=== PATIENT | female | born 1950 | race Caucasian/White ===

== ENCOUNTER 2017-11-25 09:02 | Emergency (ER) | payer MEDICARE ==
[~2017-11-25] VITALS: Ht 162.6 cm; Wt 72.4 kg
[2017-11-25 09:10] VITALS: BP 160/87; PULSE 68; RESP 18; TEMP 97.6; O2SAT 100
[2017-11-25] MEDS ORDERED: APIX5TAB PO (09:14)
[2017-11-25] MEDS ORDERED: ASPI81CH6 CHEW (09:14)
[2017-11-25] MEDS ORDERED: DEXI60CA3 PO (09:14)
[2017-11-25 09:25] VITALS: O2SAT 100
[2017-11-25] MEDS ORDERED: SODIUM CHLORIDE 0.9% FLUSH 10 ML FLUSH IVF PRN (09:30)
[2017-11-25] MEDS ORDERED: ASPIRIN 325 MG TAB PO ONE (09:30)
[2017-11-25] MEDS ORDERED: SODIUM CHLORID 0.9% 500 ML INJ 500 ML IV ONE (09:30)
[2017-11-25 09:36] LABS: AUTOMATED NEUTROPHIL # 5.4 TH/MM3 (1.8-7.7); BASOPHIL # 0.1 TH/MM3 (0-0.2); BASOPHIL % 1.3 % (0.0-2.0); EOSINOPHIL # 0.1 TH/MM3 (0-0.4); EOSINOPHIL % 0.7 % (0.0-4.0); HEMATOCRIT 47.7 % (35.0-46.0); HEMOGLOBIN 15.7 GM/DL (11.6-15.3); LYMPH % 17.2 % (9.0-44.0); LYMPHOCYTE # 1.3 TH/MM3 (1.0-4.8); MEAN CELL VOLUME 87.6 FL (80.0-100.0); MEAN CORPUSCULAR HEMOGLOBIN 28.8 PG (27.0-34.0); MEAN CORPUSCULAR HGB CONC 32.8 % (32.0-36.0); MEAN PLATELET VOLUME 10.6 FL (7.0-11.0); MONO % 6.6 % (0.0-8.0); MONOCYTE # 0.5 TH/MM3 (0-0.9); NEUT % 74.2 % (16.0-70.0); PLATELET COUNT 284 TH/MM3 (150-450); RED BLOOD COUNT 5.45 MIL/MM3 (4.00-5.30); RED CELL DISTRIBUTION WIDTH 13.1 % (11.6-17.2); WHITE BLOOD COUNT 7.4 TH/MM3 (4.0-11.0)
[2017-11-25 09:58] LABS: ALBUMIN 3.6 GM/DL (3.4-5.0); BICARBONATE 26.4 MEQ/L (21.0-32.0); BLOOD UREA NITROGEN 14 MG/DL (7-18); CALCIUM 8.5 MG/DL (8.5-10.1); GLUCOSE,RANDOM 80 MG/DL (74-106); MAGNESIUM 1.9 MG/DL (1.5-2.5)
--- NOTE | 2017-11-25 09:59 | RADRPT ---
EXAM DATE/TIME: 11/25/2017 09:41 [place] COMPARISON: No previous studies available for comparison. INDICATIONS : Chest fluttering. MEDICAL HISTORY : Carcinoma, breast. SURGICAL HISTORY : Cholecystectomy. CABG. 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 The heart is at the upper limits o f normal in terms of size. Pulmonary vasculature is normal. Lungs are clear. No infiltrates or effusi ons. Median sternotomy wires noted. Electronic device overlying the soft tissues of the anterior ches t. Bony structures are unremarkable otherwise. CONCLUSION: No acute cardiopulmonary disease. Mark Manriquez Jr., MD on November 25, 2017 at 9:56 Board Certified Radiologist. This report was verified electronically.
[2017-11-25 10:01] LABS: ALT (GPT) 23 U/L (10-53); AST (GOT) 48 U/L (15-37); CREATININE 0.92 MG/DL (0.50-1.00); GLOMERULAR FILTRATION RATE 61 ML/MIN (>89)
[2017-11-25 10:02] LABS: TOTAL PROTEIN 7.9 GM/DL (6.4-8.2)
[2017-11-25 10:03] LABS: ALKALINE PHOSPHATASE 84 U/L (45-117); CHLORIDE 105 MEQ/L (98-107); SODIUM (NA) 138 MEQ/L (136-145); TROPONIN I LESS THAN 0.02 NG/ML (0.02-0.05)
[2017-11-25 10:12] LABS: TOTAL BILIRUBIN ADULT 1.7 MG/DL (0.2-1.0)
[2017-11-25 10:21] LABS: INTERNATIONAL NORMALIZED RATIO 1.3 RATIO; PROTHROMBIN TIME - PATIENT 13.4 SEC (9.8-11.6)
[2017-11-25 10:25] LABS: D-DIMER 0.24 MG/L FEU (0.00-0.50)
[2017-11-25] MEDS ORDERED: INSULIN HUMAN REGULAR 1,000 UNITS/10 ML VIAL SQ ONE (10:30)
[2017-11-25] MEDS ORDERED: SODIUM POLYSTYRENE SULFONATE SUSP 15 GM/60 ML CUP PO ONE (10:30)
[2017-11-25] MEDS ORDERED: DEXTROSE 50% IN WATER 50 ML VIAL(D50) IV PUSH ONE (10:30)
[2017-11-25 10:50] VITALS: BP_SYST 133; BP_SYST 147; BP_DIAS 63; BP_DIAS 83; PULSE 64; RESP 16; O2SAT 99
[2017-11-25 12:30] VITALS: BP 112/57; PULSE 62; RESP 16; O2SAT 98
--- NOTE | 2017-11-25 12:35 | PD ---
HPI Chief Complaint: Cardiac Complaint Time Seen by Provider: 09:11 Travel History International Travel<30 days: No Contact w/Intl Traveler<30days: No Traveled to known affect area: No History of Present Illness HPI This is a 67-year-old female who presents to the ER complaining of palpitations that started this morning. Patient has history of a flutter and had ablation done couple years ago. Patient started noticing her heart rate going up this morning she denies any sweating no chest pain no shortness of breath. PFSH Past Medical History Heart Rhythm Problems: Yes (A-flutter ) Cancer: Yes (Breast ) Chemotherapy: Yes Radiation Therapy: Yes Tetanus Vaccination: Unknown Influenza Vaccination: No ?: Not Menopausal: Yes Past Surgical History Cardiac Surgery: Yes (MV repair, ablation X's 2, loop recorder ) Cholecystectomy: Yes Social History Alcohol Use: No Tobacco Use: No Substance Use: No Allergies-Medications (Allergen,Severity, Reaction): Coded Allergies: No Known Allergies (Unverified , 11/25/17) Reported Meds & Prescriptions Reported Meds & Active Scripts Active Reported Eliquis (Apixaban) 5 Mg Tab 5 Mg PO BID Dexilant (Dexlansoprazole) 60 Mg Cap.bp 1 Cap PO EVERY OTHER DAY Aspirin Low Dose (Aspirin) 81 Mg Chew 81 Mg CHEW DAILY Review of Systems Except as stated in HPI: all other systems reviewed are Neg Physical Exam Narrative GENERAL: Alert oriented 3 no acute distress. SKIN: Focused skin assessment warm/dry. HEAD: Atraumatic. Normocephalic. EYES: Pupils equal and round. No scleral icterus. No injection or drainage. ENT: No nasal bleeding or discharge. Mucous membranes pink and moist. NECK: Trachea midline. No JVD. CARDIOVASCULAR: Regular rate and rhythm. No murmur appreciated. RESPIRATORY: No accessory muscle use. Clear to auscultation. Breath sounds equal bilaterally. GASTROINTESTINAL: Abdomen soft, non-tender, nondistended. Hepatic and splenic margins not palpable. MUSCULOSKELETAL: No obvious deformities. No clubbing. No cyanosis. No edema. NEUROLOGICAL: Awake and alert. No obvious cranial nerve deficits. Motor grossly within normal limits. Normal speech. PSYCHIATRIC: Appropriate mood and affect; insight and judgment normal. Data Data Last Documented VS Vital Signs Date Time Temp Pulse Resp B/P (MAP) Pulse Ox O2 Delivery O2 Flow Rate FiO2 11/25/17 12:30 62 16 112/57 (75) 98 Room Air 11/25/17 09:10 97.6 Orders Orders Electrocardiogram (11/25/17:21) B-Type Natriuretic Peptide (11/25/17:21) Ckmb (Isoenzyme) Profile (11/25/17 09:21) Complete Blood Count With Diff (11/25/17:) Comprehensive Metabolic Panel (11/25/17:) D-Dimer (11/25/17:) Magnesium (Mg) (11/25/17:21) Prothrombin Time / Inr (Pt) (11/25/17:) Act Partial Throm Time (Ptt) (11/25/17:) Troponin I (11/25/17:) Ecg Monitoring (11/25/17:21) Bilateral Bp Monitoring (11/25/17:) Iv Access Insert/Monitor (11/25/17:) Oximetry (11/25/17:) Oxygen Administration (11/25/17:21) Aspirin (Aspirin) (11/25/17 09:30) Sodium Chloride 0.9% Flush (Ns Flush) (11/25/17 09:30) Sodium Chlorid 0.9% 500 Ml Inj (Ns 500 M (11/25/17 09:30) Chest, Pa & Lat (11/25/17 09:21) CKMB (11/25/17 09:20) CKMB% (11/25/17 09:20) Insulin Human Regular Inj (Novolin R Inj (11/25/17 10:30) Dextrose 50% In Kandace (Vial) Inj (D50w (Vi (11/25/17 10:30) Sodium Polysty Sulfate Liq (Kayexalate L (11/25/17 10:30) Potassium, Serum (K) (11/25/17 11:20) Diet Heart Healthy (11/25/17 Lunch) Labs Laboratory Tests Test 11/25/17 09:20 11/25/17 11:50 White Blood Count 7.4 TH/MM3 Red Blood Count 5.45 MIL/MM3 Hemoglobin 15.7 GM/DL Hematocrit 47.7 % Mean Corpuscular Volume 87.6 FL Mean Corpuscular Hemoglobin 28.8 PG Mean Corpuscular Hemoglobin Concent 32.8 % Red Cell Distribution Width 13.1 % Platelet Count 284 TH/MM3 Mean Platelet Volume 10.6 FL Neutrophils (%) (Auto) 74.2 % Lymphocytes (%) (Auto) 17.2 % Monocytes (%) (Auto) 6.6 % Eosinophils (%) (Auto) 0.7 % Basophils (%) (Auto) 1.3 % Neutrophils # (Auto) 5.4 TH/MM3 Lymphocytes # (Auto) 1.3 TH/MM3 Monocytes # (Auto) 0.5 TH/MM3 Eosinophils # (Auto) 0.1 TH/MM3 Basophils # (Auto) 0.1 TH/MM3 CBC Comment DIFF FINAL Differential Comment Prothrombin Time 13.4 SEC Prothromb Time International Ratio 1.3 RATIO Activated Partial Thromboplast Time 29.2 SEC D-Dimer Quantitative (PE/DVT) 0.24 MG/L FEU Blood Urea Nitrogen 14 MG/DL Creatinine 0.92 MG/DL Random Glucose 80 MG/DL Total Protein 7.9 GM/DL Albumin 3.6 GM/DL Calcium Level 8.5 MG/DL Magnesium Level 1.9 MG/DL Alkaline Phosphatase 84 U/L Aspartate Amino Transf (AST/SGOT) 48 U/L Alanine Aminotransferase (ALT/SGPT) 23 U/L Total Bilirubin 1.7 MG/DL Sodium Level 138 MEQ/L Potassium Level 5.6 MEQ/L 4.0 MEQ/L Chloride Level 105 MEQ/L Carbon Dioxide Level 26.4 MEQ/L Anion Gap 7 MEQ/L Estimat Glomerular Filtration Rate 61 ML/MIN Total Creatine Kinase 164 U/L Creatine Kinase MB 1.6 NG/ML Troponin I LESS THAN 0.02 NG/ML B-Type Natriuretic Peptide 140 PG/ML [facility] Medical Decision Making Medical Screen Exam Complete: Yes Emergency Medical Condition: Yes Differential Diagnosis A flutter, dehydration, acute cord syndrome. Narrative Course This is a 67-year-old female who presented to the ER complaining of palpitation that was noticed this morning. Patient had elevated potassium here in the was managed by insulin and D50 along with Kayexalate repeat potassium was 4 EKG is unremarkable, chest x-ray is unremarkable and the rest of the labs are within normal limits. I believe this patient has one episode of a flutter that subsided on its own. Patient now has no palpitations or any other complaints. The fact that the patient denies any chest pain and an extensive history of a father I recommend the patient follow-up with cardiology in [place]. I spoke with the patient brother Dr. Biggs who is practicing physician here and he agrees with the plan. Diagnosis Primary Impression: Palpitations Disposition: 01 DISCHARGE HOME Condition: Stable Jw Reyna MD Nov 25, 2017 12:35
--- NOTE | 2017-11-26 23:17 | EKG ---
Date Performed: 11/25/2017 Time Performed: 09:17:41 PTAGE: 67 years EKG: Sinus rhythm WITH FREQUENT SUPRAVENTRICULAR PREMATURE COMPLEXES INFERIOR MYOCARDIAL INFARCTION NON-SPECIFIC ST/T WAVE CHANGES ABNORMAL ECG NO PREVIOUS TRACING DOCTOR: Marc Cowart Interpretating Date/Time 11/26/2017 23:16:58
== END 2017-11-25 13:00 | disposition home or self-care (01) ==
LOC: PHED 09:02
DX: R00.2 Palpitations (principal); R94.31 Abnormal electrocardiogram [ECG] [EKG]; E87.5 Hyperkalemia; Z79.01 Long term (current) use of anticoagulants
CPT/HCPCS: 71046; 80053; 82550; 82552; 83735; 83880; 84132; 84484; 85025; 85379; 85610; 85730; 93005; 96361; 96372; 96374; 99285; J1815; J7040